=== PATIENT | female | born 1965 | race Caucasian/White ===

== ENCOUNTER → 2021-09-30 | Outpatient (CLI) | payer MEDICAID | END | disposition home or self-care (01) | LOC: Rad HDHVI 14:42 | PROVIDERS: ATTEND Internal Medicine | DX: Z01.818 Encounter for other preprocedural examination (principal); I10 Essential (primary) hypertension | CPT/HCPCS: 93306; 93925 ==

== ENCOUNTER → 2021-10-13 | Outpatient (CLI) | payer MEDICAID ==
[~2021-10-13] VITALS: Ht 160 cm; Wt 122.5 kg
== END | disposition home or self-care (01) ==
LOC: Rad HDHVI 09:14
PROVIDERS: ATTEND Internal Medicine
DX: Z01.810 Encounter for preprocedural cardiovascular examination (principal); I10 Essential (primary) hypertension; E78.5 Hyperlipidemia, unspecified; Z82.49 Family history of ischemic heart disease and other diseases of the circulatory system
CPT/HCPCS: 78452; 93017; 96374; A9500

== ENCOUNTER → 2022-03-01 | Outpatient (CLI) | payer MEDICAID ==
[~2022-03-01] MED LIST: CILO100T PO; FAMO20TA10 PO; FURO1TAB33 PO; GABA100C9 PO; GABA300C10 PO; GABA400C11 PO; LEVO75TA6 PO; LOSA25TA38 PO; POTA10TA51 PO; POTA1TAB64 PO; ROSU20TA14 PO; TRAZ150T84 PO
[2022-03-01 09:58] VITALS: BP 129/74
[2022-03-01 10:24] VITALS: BP 123/60
[2022-03-01 12:47] LABS: Basophils # (auto) 0 10 ^3/uL (0-0.2); Basophils % (auto) 0.4 % (0.0-2.0); Eosinophils # (auto) 0.2 10 ^3/uL (0-0.8); Eosinophils % (auto) 2.8 % (0.0-7.0); Hematocrit 40.9 % (36.0-46.0); Hemoglobin 13.5 g/dL (12.2-16.2); Lymphocytes # (auto) 3.1 10 ^3/uL (0.4-5.4); Lymphocytes % (auto) 38.1 % (10.0-50.0); Mean Corpuscular Hemoglobin 29.8 pg (28.0-32.0); Mean Corpuscular Hgb Conc. 32.9 g/dL (32.0-36.0); Mean Corpuscular Volume 90.7 fL (80.0-100.0); Monocytes # (auto) 0.6 10 ^3/uL (0-1.3); Neutrophils # (auto) 4.2 10 ^3/uL (1.6-8.6); Neutrophils % (auto) 51.7 % (37.0-80.0); Nucleated Red Blood Cells % 0.1 %; Red Blood Cells 4.51 10^6/uL (4.0-5.20); Red Cell Distribution Width 13.7 % (11.8-14.3); White Blood Cell 8.1 10^3/uL (4.4-10.8)
[2022-03-01 12:59] LABS: Calcium 9.3 mg/dL (8.5-10.1); Potassium 4.8 mmol/L (3.5-5.1)
[2022-03-01 13:01] LABS: INR 0.97 (0.9-1.15); Partial Thromboplastin Time 28.3 sec (24.6-33.4)
== END | disposition home or self-care (01) ==
LOC: Rad HDHVI 09:24
PROVIDERS: ATTEND Internal Medicine
DX: R79.1 Abnormal coagulation profile (principal); M79.605 Pain in left leg; I70.212 Atherosclerosis of native arteries of extremities with intermittent claudication, left leg; Z01.818 Encounter for other preprocedural examination
CPT/HCPCS: 36415; 71046; 80048; 85025; 85610; 85730; 93005; G0463

== ENCOUNTER 2022-03-03 06:27 | Day surgery (SDC) | payer MEDICAID ==
[~2022-03-03] VITALS: Ht 160 cm; Wt 122.5 kg
[2022-03-03 08:08] LABS: Basophils # (auto) 0.1 10 ^3/uL (0-0.2); Basophils % (auto) 0.9 % (0.0-2.0); Eosinophils # (auto) 0.2 10 ^3/uL (0-0.8); Eosinophils % (auto) 2.9 % (0.0-7.0); Hematocrit 40.8 % (36.0-46.0); Hemoglobin 13.4 g/dL (12.2-16.2); Lymphocytes # (auto) 2.7 10 ^3/uL (0.4-5.4); Lymphocytes % (auto) 34.9 % (10.0-50.0); Mean Corpuscular Hemoglobin 29.3 pg (28.0-32.0); Mean Corpuscular Hgb Conc. 32.7 g/dL (32.0-36.0); Mean Corpuscular Volume 89.7 fL (80.0-100.0); Monocytes # (auto) 0.5 10 ^3/uL (0-1.3); Monocytes % (auto) 6.7 % (0.0-12.0); Neutrophils # (auto) 4.3 10 ^3/uL (1.6-8.6); Neutrophils % (auto) 54.6 % (37.0-80.0); Nucleated Red Blood Cells % 0.1 %; Red Blood Cells 4.56 10^6/uL (4.0-5.20); Red Cell Distribution Width 13.5 % (11.8-14.3); White Blood Cell 7.9 10^3/uL (4.4-10.8)
[2022-03-03 08:22] LABS: INR 1.05 (0.9-1.15)
[2022-03-03] MEDS ORDERED: FURO1TAB33 PO (08:23)
[2022-03-03] MEDS ORDERED: POTA10TA51 PO (08:23)
[2022-03-03] MEDS ORDERED: GABA100C9 PO (08:23)
[2022-03-03] MEDS ORDERED: ROSU20TA14 PO (08:23)
[2022-03-03] MEDS ORDERED: LOSA25TA38 PO (08:23)
[2022-03-03] MEDS ORDERED: GABA300C10 PO (08:23)
[2022-03-03] MEDS ORDERED: CILO100T PO (08:23)
[2022-03-03] MEDS ORDERED: FAMO20TA10 PO (08:23)
[2022-03-03] MEDS ORDERED: LEVO75TA6 PO (08:23)
[2022-03-03] MEDS ORDERED: TRAZ150T84 PO (08:23)
[2022-03-03 08:27] LABS: Calcium 8.7 mg/dL (8.5-10.1); Potassium 4.3 mmol/L (3.5-5.1)
[2022-03-03] MEDS ORDERED: fentaNYL CITRATE 100 MCG/2 ML VL ONE (10:36)
[2022-03-03] MEDS ORDERED: ANGIOMAX 250 MG VIAL IV ONE (10:36)
[2022-03-03] MEDS ORDERED: SODIUM CHL 0.9% 0 ML ONE (10:37)
[2022-03-03] MEDS ORDERED: LIDOCAINE 2%HCL (LOCAL ANESTH.) INJ 20ML MDV ONE (10:37)
[2022-03-03] MEDS ORDERED: MIDAZOLAM HCL 2MG/2ML 2ml VIAL (1mg/ml) ONE (10:37)
[2022-03-03] MEDS ORDERED: GABA400C11 PO (12:06)
[2022-03-03] MEDS ORDERED: POTA1TAB64 PO (12:06)
== END 2022-03-03 12:55 | disposition home or self-care (01) ==
LOC: CATH 06:27
PROVIDERS: ATTEND Internal Medicine
DX: I73.9 Peripheral vascular disease, unspecified (principal); M79.605 Pain in left leg; I10 Essential (primary) hypertension; Z79.899 Other long term (current) drug therapy; Z20.822 Contact with and (suspected) exposure to COVID-19
CPT/HCPCS: 36247; 36415; 80048; 85025; 85610; 87426; C1760; C1769; C1894; J1644; J2250; J3010; 99152